=== PATIENT | male | born 1990 | race Caucasian/White ===

== ENCOUNTER 2019-07-27 22:45 | Emergency (ER) | payer OTHER | END 2019-07-27 23:48 | disposition left against medical advice (07) | LOC: ERS 22:45 | DX: Z53.21 Procedure and treatment not carried out due to patient leaving prior to being seen by health care provider (principal) ==

== ENCOUNTER 2019-09-10 08:35 | Emergency (ER) | payer OTHER, SELFPAY | END 2019-09-10 09:08 | disposition home or self-care (01) | LOC: ERS 08:35 | DX: H10.9 Unspecified conjunctivitis (principal); F32.9 Major depressive disorder, single episode, unspecified | CPT/HCPCS: 99283 ==

== ENCOUNTER 2020-01-31 02:58 | Emergency (ER) | payer SELFPAY ==
[2020-01-31 03:33] LABS: Bilirubin Negative (Negative); Blood, Urine Negative (Negative); Clarity Extra Turbid (Clear); Glucose, Urine (Dipstick) Normal (Negative); Ketone, Urine Negative (Negative); Leukocyte Negative Leu/uL (Negative); Nitrite Negative (Negative); Protein, Urine (Dipstick) Negative (Neg-Trace); Specific Gravity, Urine 1.021 (1.002-1.036); Urobilinogen Normal mg/dL (Less than 2); pH, Urine 6.5 (5.0-9.0)
[2020-01-31 04:00] LABS: Anion Gap 13 mmol/L (10-20); BUN (Urea Nitrogen) 12 mg/dL (8.9-20.6); Calc. Creatinine Clearance 0 mL/min (70-130); Carbon Dioxide 24 mmol/L (22-29); Chloride 105 mmol/L (98-107); Estimated GFR-MDRD Greater than 90; Glucose 91 mg/dL (70-105); Potassium 3.7 mmol/L (3.5-5.1); Sodium 138 mmol/L (136-145)
== END 2020-01-31 04:15 | disposition home or self-care (01) ==
LOC: ERS 02:58
DX: R10.9 Unspecified abdominal pain (principal); H00.16 Chalazion left eye, unspecified eyelid; F17.210 Nicotine dependence, cigarettes, uncomplicated; F32.9 Major depressive disorder, single episode, unspecified
CPT/HCPCS: 36415; 80048; 81003; 99284

== ENCOUNTER 2020-05-16 14:54 | Emergency (ER) | payer SELFPAY ==
[2020-05-16 21:45] LABS: SARS-CoV-2 MS2 Positive; SARS-CoV-2 N Gene Negative; SARS-CoV-2 S Gene Negative; SARS-CoV-2 by NAA Not Detected (NotDetected); SARS-CoV-2 orf1ab Negative
== END 2020-05-16 16:12 | disposition home or self-care (01) ==
LOC: ERS 14:54
DX: R05 Cough (principal); R11.2 Nausea with vomiting, unspecified; Z20.828 Contact with and (suspected) exposure to other viral communicable diseases; F17.210 Nicotine dependence, cigarettes, uncomplicated
CPT/HCPCS: 87635; 87804; 99283; U0003

== ENCOUNTER 2020-08-21 00:34 | Emergency (ER) | payer SELFPAY ==
[2020-08-21] MEDS ORDERED: HYDROcodone/Acetaminophen 5/325 mg Tablet ONE (01:47)
== END 2020-08-21 01:59 | disposition home or self-care (01) ==
LOC: ERS 00:34
DX: K12.2 Cellulitis and abscess of mouth (principal); I50.9 Heart failure, unspecified; F17.210 Nicotine dependence, cigarettes, uncomplicated
CPT/HCPCS: 99283

== ENCOUNTER 2021-04-19 03:05 | Emergency (ER) | payer SELFPAY ==
[2021-04-19] MEDS ORDERED: Acetaminophen 500 MG TAB ONE (03:41)
[2021-04-19] MEDS ORDERED: Ibuprofen 800 MG TAB ONE (03:41)
== END 2021-04-19 03:48 | disposition home or self-care (01) ==
LOC: ERS 03:05
DX: K04.7 Periapical abscess without sinus (principal); R22.0 Localized swelling, mass and lump, head
CPT/HCPCS: 99282

== ENCOUNTER 2021-05-09 21:50 | Emergency (ER) | payer SELFPAY | END 2021-05-09 22:08 | LOC: ERS 21:50 | DX: Z02.89 Encounter for other administrative examinations (principal) | CPT/HCPCS: 99282 ==

== ENCOUNTER 2021-05-26 08:57 | Emergency (ER) | payer SELFPAY ==
[2021-05-26 19:50] LABS: SARS-CoV-2 PCR by NAA Not Detected (NotDetected)
== END 2021-05-26 10:02 | disposition home or self-care (01) ==
LOC: ERS 08:57
DX: J06.9 Acute upper respiratory infection, unspecified (principal); Z20.822 Contact with and (suspected) exposure to COVID-19
CPT/HCPCS: 99283; U0003; U0005

== ENCOUNTER 2021-11-03 13:21 | Emergency (ER) | payer SELFPAY ==
[2021-11-03] MEDS ORDERED: Ketorolac Tromethamine 30 MG/ML VIAL ONE (14:42)
== END 2021-11-03 15:06 | disposition home or self-care (01) ==
LOC: ERS 13:21
DX: K04.7 Periapical abscess without sinus (principal); F17.210 Nicotine dependence, cigarettes, uncomplicated
CPT/HCPCS: 96372; 99282; J1885

== ENCOUNTER 2022-08-31 09:31 | Emergency (ER) | payer SELFPAY ==
[2022-08-31] MEDS ORDERED: Ketorolac Tromethamine 30 MG/ML VIAL ONE (10:53)
== END 2022-08-31 11:15 | disposition home or self-care (01) ==
LOC: ERS 09:31
DX: S09.90XA Unspecified injury of head, initial encounter (principal); F17.210 Nicotine dependence, cigarettes, uncomplicated; W22.8XXA Striking against or struck by other objects, initial encounter
CPT/HCPCS: 96372; 99283; J1885

== ENCOUNTER 2025-01-14 10:28 | Emergency (ER) | payer SELFPAY ==
[2025-01-14] MEDS ORDERED: Ketorolac Tromethamine 30 MG (1 mL) VIAL ONE (11:15)
== END 2025-01-14 11:37 | disposition home or self-care (01) ==
LOC: ERS 10:28
DX: S69.92XA Unspecified injury of left wrist, hand and finger(s), initial encounter (principal); F17.290 Nicotine dependence, other tobacco product, uncomplicated; W25.XXXA Contact with sharp glass, initial encounter; Y99.0 Civilian activity done for income or pay
CPT/HCPCS: 96372; 99283; J1885